=== PATIENT | male | born 1955 | race Caucasian/White ===

== ENCOUNTER → 2016-12-10 | Outpatient (CLI) | payer OTHER ==
[~2016-12-10] MED LIST: HYDROCHLOROTH12.5 M1; LIPITOR; MULTIVITAMIN1 UDCAP PO; POTASSIUM OTC; ULTRAM PO; VITAMIN B 12 OTC; VITAMIN E400 UNI2 PO; VOLTAREN75 MG PO; [UNRECOGNIZED DRUG - OTHER]
--- NOTE | ~2016-12-10 | MR164 ---
[facility]. [facility] A Service of [facility] RADIOLOGY TEXT RESULTS PATIENT: KEON LINDSAY LOCATION: [facility] : 57 UNIT #: [id number] AGE: [address]: YUDY OSORIO MD SEX: M ORDER DR: [id number] [address] [address] [id number] O MR#: [id number] Acc #: [id number] NAME: KEON LINDSAY : 1955 SEX: M STUDY DATE/TIME: 12/10/2016 9:14 UNIT: [facility] ROOM: STUDY DESCRIPTION: MR Shoulder Wo Contrast Lt Attending Physician: Yudy Osorio M.D. Referring Physician: Yudy Osorio M.D. Ordering Physician: Yudy Osorio M.D. Primary Care Physician: Yudy Osorio M.D. [facility] REPORT This report is preliminary unless electronic signature is present. EXAM Left shoulder MRI without contrast 12/10/2016 HISTORY 61-year-old male with left shoulder pain for 1 year. No specific injury. No prior left shoulder surgery COMPARISON Left shoulder x-rays 03/22/2016 TECHNIQUE Routine unenhanced multiplanar, multisequence high field MR imaging of the left shoulder was performed. FINDINGS There is a full-thickness tear involving the posterior insertional supraspinatus tendon. The tear measures approximately 1 cm in AP dimension with 1.4 cm retraction over the middle third of the humeral head. No significant supraspinatus atrophy. There is mild infraspinatus tendinopathy without tear. Teres minor and subscapularis tendons are intact. The long biceps tendon appears intact and well positioned in the bicipital groove. Mild degeneration of the superior glenoid labrum. Glenohumeral articular cartilage is intact. No glenohumeral effusion. Mild degenerative change of acromioclavicular joint. No subacromial spur. There are mild reactive enthesopathic marrow changes in the greater tuberosity of the humerus. Remaining bone marrow signal is within expected limits. Visualized musculature is unremarkable. IMPRESSION [facility] A Service of [facility] RADIOLOGY TEXT RESULTS PATIENT: KEON LINDSAY LOCATION: [facility] : 57 UNIT #: [id number] AGE: [address]: YUDY OSORIO MD SEX: M ORDER DR: 1. Full-thickness tear involving the posterior insertional supraspinatus tendon. The tear measures approximately 1 cm in AP dimension with 1.4 cm of retraction. No significant supraspinatus muscle atrophy. 2. Mild infraspinatus tendinopathy without tear. 3. Mild superior labral degeneration. 4. Mild acromioclavicular joint arthrosis. Dictated by... Geovanni Andrade M.D. THIS IS AN ELECTRONICALLY VERIFIED REPORT Geovanni Andrade M.D. at 12/14/2016 2:24 PM KAMINI/janice TD: 12/13/2016 18:36 JOB #: [id number] [facility] REPORT Page 1 of 1
== END | disposition home or self-care (01) ==
LOC: SMRI 08:54
DX: M25.512 Pain in left shoulder (principal); M24.112 Other articular cartilage disorders, left shoulder; M75.82 Other shoulder lesions, left shoulder
CPT/HCPCS: 73221